=== PATIENT | male | born 1950 | race Caucasian/White ===

== ENCOUNTER 2018-08-11 01:06 | Emergency (ER) | payer OTHER ==
[2018-08-11 01:41] LABS: #Eosinphils 0.1 thou/uL (0.0-0.7); #Lymphocytes 1.5 thou/uL (1.20-3.40); #Monocytes 0.6 thou/uL (0.11-0.59); %Basophils 0.5 % (0.0-1.0); %Eosinophils 1.1 % (0.0-10.0); %Lymphocytes 20.4 % (21.0-51.0); %Monocytes 8.4 % (0.0-10.0); %Neutrophils 69.5 % (42.0-75.0); Hemoglobin 15.1 g/dL (14.0-18.0); Mean Corpuscular HGB CONC 33.3 g/dL (32.0-36.0); Mean Corpuscular Hemoglobin 32.5 pg (27.0-31.0); Mean Corpuscular Volume 97.4 fL (78.0-98.0); Mean Platelet Volume 7.5 fL (7.4-10.4); Platelet Count 209 thou/uL (130-400); RBC Distribution Width 11.8 % (11.5-14.5); Red Blood Cell (RBC) Count 4.65 mill/uL (4.70-6.10); White Blood Cell (WBC) Count 7.2 thou/uL (4.8-10.8)
[2018-08-11 01:48] LABS: PTT 26.3 SEC (22.9-36.1); Prothrombin Time 13.7 SEC (12.0-14.7)
[2018-08-11 02:05] LABS: CKMB 0.8 ng/mL (0-6.6); Troponin I Less than 0.010 ng/mL (< 0.028)
[2018-08-11 02:06] LABS: ALT (SGPT) 14 U/L (8-55); AST (SGOT) 13 U/L (5-34); Acetaminophen Less than 6.0 mcg/mL (10.0-30.0); Albumin 3.6 g/dL (3.4-4.8); Alcohol 32 mg/dL (Less than 10); Alkaline Phosphatase 40 U/L (40-150); Anion Gap 18 mmol/L (10-20); BUN (Urea Nitrogen) 21 mg/dL (8.4-25.7); Bilirubin, Total 0.2 mg/dL (0.2-1.2); CK (CPK) 29 U/L (30-200); Calc. Creatinine Clearance 0 mL/min (70-130); Calcium 8.6 mg/dL (7.8-10.44); Carbon Dioxide 20 mmol/L (23-31); Chloride 104 mmol/L (98-107); Estimated GFR-MDRD 64; Globulin 2.3 g/dL (2.4-3.5); Glucose 107 mg/dL (80-115); Potassium 4.3 mmol/L (3.5-5.1); Protein, Total 5.9 g/dL (5.8-8.1); Salicylate Less than 8.0 mg/dL (15.0-30.0); Sodium 138 mmol/L (136-145)
[2018-08-11 03:44] LABS: Bilirubin Negative (Negative); Blood, Urine Negative (Negative); Clarity CLEAR (Clear); Glucose, Urine (Dipstick) Negative (Negative); Leukocyte Negative (Negative); Nitrite Negative (Negative); Protein, Urine (Dipstick) Negative (Neg-Trace); Specific Gravity, Urine 1.016 (1.002-1.036); Urobilinogen 0.2 mg/dL (0.2-1.0); pH, Urine 5.5 (5.0-9.0)
[2018-08-11 03:52] LABS: Amphetamine Not Detected (NotDetected); Barbiturates Screen Not Detected (NotDetected); Benzodiazepine Screen Not Detected (NotDetected); Cocaine Metabolite Screen Not Detected (NotDetected); Medtox Reader # READER 1; Methadone Not Detected (NotDetected); Methamphetamine Not Detected (NotDetected); Opiate Screen Not Detected (NotDetected); Oxycodone Screen Not Detected (NotDetected); Phencyclidine (PCP) Not Detected (NotDetected); THC/Cannabinoid Screen Not Detected (NotDetected); Tricyclic Screen Detected (NotDetected)
[2018-08-11 03:53] LABS: Medtox Control Line Valid? VALID (VALID)
[2018-08-11] MEDS ORDERED: Aspirin 325 MG TAB ONE (07:38)
[2018-08-11] MEDS ORDERED: lamoTRIgine 100 MG TAB PO SCH (08:30)
[2018-08-11] MEDS ORDERED: Bupropion 150 MG XL TAB PO SCH (08:30)
--- NOTE | 2018-08-11 10:10 | CT ---
PRELIMINARY REPORT/[facility]/EMERGENTY AFTER-HOURS PROCEDURE CT Head Without Intravenous Contrast EXAM DATE/TIME: 08/11/2018 1:38 AM CLINICAL HISTORY: 67 years old, male; Injury; Fall; Initial encounter; Blunt trauma; Consciousness not specified; hypot ension (lowest measured BP 86/49) - suspected blood pressure medication overdose per patient. Ems rep orts pt fell this evening and now having slurred speech. Lsn 2100. 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 Pt got out of bed, suddenly felt dizzy causing fall, was unable to lift himself up and that his speech was slurred. Pt states his medications make him slur is words normally TECHNIQUE: Axial computed tomography images of the head/brain without intravenous contrast. COMPARISON: CT Brain WO Con 07/01/2018 12:26 AM FINDINGS: Brain: Diffuse cerebral atrophy. No mass effect or midline shift. No extra-axial fluid collection. Ventricles: Ventricular prominence in this patient with diffuse cerebral atrophy. Bones/joints: No fracture. Sinuses: No significant disease of the paranasal sinuses. Mastoid air cells: No mastoiditis. Soft tissues: Normal. IMPRESSION: 1. No fracture. 2. No acute intracranial findings - no changes compared to 07/01/2018. Thank you for allowing us to participate in the care of your patient. Dictated and Authenticated by: Kei Dobson MD 08/11/2018 1:56 AM Central Time ([place] & [place]) FINAL REPORT HEAD CT WITHOUT CONTRAST: HISTORY: Trauma. Slurred speech and dizziness. COMPARISON: 07/01/2018. FINDINGS: This report is in agreement with the preliminary report by [facility]. No intracranial posttraumatic sequel ae. No acute intracranial process. POS: [facility]
--- NOTE | 2018-08-11 10:11 | CT ---
PRELIMINARY REPORT/[facility]/EMERGENTY AFTER-HOURS PROCEDURE CT Cervical Spine Without Intravenous Contrast EXAM DATE/TIME: 08/11/2018 1:41 AM CLINICAL HISTORY: 67 years old, male; Injury; Fall; Initial encounter; Blunt trauma; Consciousness not specified; hypot ension (lowest measured BP 86/49) - suspected blood pressure medication overdose per patient. Ems rep orts pt fell this evening and now having slurred speech. Lsn 2100. 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 Pt got out of bed, suddenly felt dizzy causing fall, was unable to lift himself up and that his speech was slurred. Pt states his medications make him slur is words normally TECHNIQUE: Axial computed tomography images of the cervical spine without intravenous contrast. COMPARISON: No relevant prior studies available. FINDINGS: No acute fracture. No subluxation. Cervical spine anterior hypertrophic spurring. Narrowing of the C3-4 through C6-7 disc spaces with bilateral neural foraminal narrowing at these lev els. IMPRESSION: No acute fracture or subluxation. Thank you for allowing us to participate in the care of your patient. Dictated and Authenticated by: Kei Dobson MD 08/11/2018 2:08 AM Central Time ([place] & [place]) FINAL REPORT CT CERVICAL SPINE WITHOUT CONTRAST: Date: 08/11/18 HISTORY: Dizziness. Fall. Post-traumatic pain. COMPARISON: None. FINDINGS/IMPRESSION: This report is in agreement with the preliminary report by [facility]. There is degenerative change of the cervical spine with varying degrees of central canal stenosis and foraminal narrowing on the basis of disc osteophyte change, as well as degenerative changes of the uncovertebral joints and facets. Ther e is severe stenosis involving the central spinal canal at C2-C3 and moderate to severe central canal stenosis at C3-C4, as well as C5-C6. Varying degrees of significant foraminal stenosis noted. There is no evidence of fracture. POS: [facility]
--- NOTE | 2018-08-11 10:12 | CT ---
PRELIMINARY REPORT/[facility]/EMERGENTY AFTER-HOURS PROCEDURE CT Pelvis Without Intravenous Contrast EXAM DATE/TIME: 08/11/2018 1:43 AM CLINICAL HISTORY: 67 years old, male; Injury; Fall; Initial encounter; Blunt trauma; Consciousness not specified; hypot ension (lowest measured BP 86/49) - suspected blood pressure medication overdose per patient. Ems rep orts pt fell this evening and now having slurred speech. Lsn 2100. 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 Pt got out of bed, suddenly felt dizzy causing fall, was unable to lift himself up and that his speech was slurred. Pt states his medications make him slur is words normally TECHNIQUE: Axial computed tomography images of the pelvis without intravenous contrast. Examination was focused on the musculoskeletal structures. COMPARISON: No relevant prior studies available. FINDINGS: Stomach and bowel: Scattered colon diverticuli without evidence of diverticulitis. Appendix: Prior appendectomy. Bones/joints: Streak artifact from metallic right hip prosthesis obscures portions of the lower pelvi s. Soft tissues: Small fat-containing umbilical hernia. Fat-containing left inguinal hernia. No soft tis skeou hematoma. IMPRESSION: 1. No soft tissue hematoma. 2. No fracture or dislocation. 3. Scattered colon diverticuli without evidence of diverticulitis. Thank you for allowing us to participate in the care of your patient. Dictated and Authenticated by: Kei Dobson MD 08/11/2018 2:12 AM Central Time ([place] & [place]) FINAL REPORT CT PELVIS WITHOUT CONTRAST: HISTORY: Trauma. Posttraumatic pain. COMPARISON: None. FINDINGS: This report is in agreement with the preliminary report by [facility]. No evidence of a soft tissue hematom a. Evaluation of the pelvis is limited by beam-attenuation artifact secondary to a right hip arthrop lasty. There is mucosal thickening of the visualized left hemicolon. Diverticulosis, without eviden ce of diverticulitis. If there is concern for colonic neoplasm, nonemergent colonoscopy is recommend ed. Vacuum-disk phenomenon of lumbosacral junction. Bony pelvis is intact. No evidence of a pelvic bone fracture. POS: [facility]
== END 2018-08-11 10:18 | disposition short-term general hospital (02) ==
LOC: ERS 01:06
DX: G45.9 Transient cerebral ischemic attack, unspecified (principal); E78.5 Hyperlipidemia, unspecified; I10 Essential (primary) hypertension; F41.9 Anxiety disorder, unspecified; F31.9 Bipolar disorder, unspecified; Z79.899 Other long term (current) drug therapy
CPT/HCPCS: 36415; 70450; 72125; 72192; 80053; 80306; 80307; 81003; 82553; 83880; 84484; 85025; 85610; 85730; 87086; 93005; 96360